=== PATIENT | male | born 2000 | race African-American/Black ===

== ENCOUNTER 2025-04-26 16:06 | Emergency (ER) | payer SELFPAY ==
[2025-04-26 16:21] VITALS: BP 151/124; PULSE 81; RESP 16; TEMP 36.9; O2SAT 100
--- NOTE | 2025-04-26 16:53 | ED_ITS ---
HPI - Male Genitourinary General Chief complaint: Urogenital-Male Stated complaint: std testing Time Seen by Provider: 04/26/25 16:40 Source: patient and RN notes reviewed Mode of arrival: ambulatory Limitations: no limitations History of Present Illness HPI Narrative: 24-year-old male presents Express Care complaining of exposure STD. Patient was notified he had unprotected sex with someone who has chlamydia. Patient reports that he has been having dysuria over the last 2-3 days. Patient denies any penile discharge, painful erections, painful ejaculation, painful intercourse, testicular pain or swelling. Patient denies any abdominal pain, nausea, vomiting, diarrhea, fevers, body aches, or any other symptoms. Patient would like to be tested for STDs. Related Data Allergies Allergy/AdvReac Type Severity Reaction Status Date / Time No Known Allergies Allergy Verified 04/26/25 16:09 Review of Systems Review of Systems: CONSTITUTIONAL: Denies fever, chills, body aches, or sweats. EYES: Denies visual changes, redness, or discharge. ENT: Denies rhinorrhea, congestion, sore throat, or otalgia. CARDIOVASCULAR: Denies chest pain, palpitations, or edema. RESPIRATORY: Denies cough or dyspnea. GASTROINTESTINAL: Denies abdominal pain, nausea, vomiting, or diarrhea. GENITOURINARY: Positive for dysuria. Negative for hematuria, penile discharge, painful erection, painful intercourse, testicular/scrotal pain/swelling. SKIN: Denies rash or itching. MUSCULOSKELETAL: Denies back pain, joint pain, or myalgia. NEUROLOGIC: Denies headache, numbness, or weakness. PSYCHIATRIC: Denies anxiety or depression. All other systems reviewed are negative, except as documented in HPI. PMFSH Comments At the time of my signature, I reviewed and agree with the nursing past medical, surgical, social, and family history. There is no relevant family history pertinent to the patient complaint. Exam Narrative: GENERAL: This is a well-nourished, well-developed adult, in no apparent distress. They are non ill-appearing, nontoxic appearing. HEAD: normocephalic, atraumatic. EYES: Sclera clear/white. Conjunctiva normal. Vision is grossly intact. Extraocular movements intact EARS: External ears normal, Hearing grossly intact. NOSE: External nose normal THROAT: Mucous membranes moist NECK: Neck supple, CARDIOVASCULAR: Regular rate and rhythm RESPIRATORY: My normal respiratory exam GENITOURINARY: Patient declined genital exam. SKIN: warm, Dry, intact with no suspicious lesions or rash, good texture and turgor. NEURO: awake, alert, and oriented to person, place and time. There were no obvious focal neurologic abnormalities. EXTREMITIES: No joint tenderness, effusion, or edema noted. Course Course Emergency Course: Portions of this record may have been created with voice recognition software Level of Care: Express Care Visit Vital Signs Vital signs: Vital Signs Temperature 98.4 F 04/26/25 16:21 Pulse Rate 81 04/26/25 16:21 Respiratory Rate 16 04/26/25 16:21 Blood Pressure 151/124 H 04/26/25 16:21 Pulse Oximetry 100 04/26/25 16:21 Oxygen Delivery Room Air 04/26/25 16:21 Temperature 98.4 F 04/26/25 16:21 Pulse Rate 81 04/26/25 16:21 Respiratory Rate 16 04/26/25 16:21 Blood Pressure 151/124 H 04/26/25 16:21 Pulse Oximetry 100 04/26/25 16:21 Oxygen Delivery Room Air 04/26/25 16:21 Reviewed MDM - Male Genitourinary MDM Narrative Medical decision making narrative: Urine dipstick shows trace leukocytes, bilirubin, glucose, and proteinurea. Urine culture pending. Given patient's dysuria will treat for urinary tract infection with cefuroxime. Chlamydia, gonorrhea, Trichomonas culture pending. Offered patient genital exam he declined. Patient elected to go ahead and be treated for chlamydia since he has a known exposure. Will treat empirically with doxycycline. [facility] if there are concerns for any other STDs we are unable to test for. Discussed physical exam findings. Advised supportive measures and signs/symptoms to go to the ER. Pt is appropriate for outpt treatment and f/u. Differential Diagnosis Differential diagnosis: Likely urinary tract infection, urethritis and other (STD) Lab Data Labs: Lab Results 04/26/25 Range/Units 17:02 POC Urine Color Yellow POC Urine Clarity Clear POC Urine pH 6.5 POC Ur Specif Mcgrath 1.030 POC Urine Protein 2+ (Negative) POC Ur Glucose (UA) 1+ (Negative) POC Urine Ketones Trace (Negative) POC Urine Blood Negative (Negative) POC Urine Nitrite Negative (Negative) POC Urine Bilirubin 1+ (Negative) POC Urine Urobilinogen 2.0 POC U Leukocyte Esteras Trace (Negative) Critical Care Time Critical Care Time Critical Care Time: No Discharge Plan Discharge Clinical Impression: STD exposure, Dysuria Urinary tract infection Qualifiers: Urinary tract infection type: site unspecified Hematuria presence: without hematuria Qualified Code(s): N39.0 - Urinary tract infection, site not specified Patient Disposition: Home Condition: Stable Instructions: Antibiotic Form, Chlamydia (ED), Sexually Transmitted Diseases (ED), Safe Sex Practices (ED), Urinary Tract Infection in Men (ED) Additional Instructions: Your urine dipstick shows evidence of a urinary tract infection. Take the cefuroxime as prescribed. The urine will be sent of for a culture to identify what type of bacteria is causing your infection. If the culture shows that the antibiotic will not get rid of your infection, you will be notified and a new antibiotic will be called in for you. You will also be notified for chlamydia, gonorrhea, Trichomonas results in You may need further treatment if gonorrhea Trichomonas are positive. You have Elected to go ahead and start treatment for chlamydia today. Please take doxycycline as directed and please wear sunscreen for going to be outside while taking doxycycline. [facility]comprehensive STD testing. Follow-up with PCP in 3-5 days. Developing abdominal pain, bloody urine, fevers, body aches, nausea, vomiting, or any other concerns please go to the ER immediately. Patient Language: Liberian Prescriptions: New doxycycline monohydrate 100 mg capsule 100 mg PO BID 7 Days Qty: 14 0RF cefuroxime axetil 500 mg tablet 500 mg PO Q12H 7 Days Qty: 14 0RF Follow-up/Referrals: PHYSICIAN,COBBLER APPRENTICE [Primary Care Provider] - Time of Disposition: 16:58
[2025-04-26 17:09] LABS: EDUAAPPEAR Clear; EDUABILI 1+ (Negative); EDUABLOOD Negative (Negative); EDUACOLOR1 Yellow; EDUAGLUCOSE 1+ (Negative); EDUAKETONE Trace (Negative); EDUALEUKO Trace (Negative); EDUANITRATE Negative (Negative); EDUAPH 6.5; EDUAPROTEIN 2+ (Negative); EDUASPGRAVITY 1.030; EDUAUROBILI 2.0
[2025-04-26 20:03] LABS: Trichomonas Vag PCR NOT DETECTED (NOT DETECTE)
== END 2025-04-26 17:25 | disposition home or self-care (01) ==
DX: Z20.2 Contact with and (suspected) exposure to infections with a predominantly sexual mode of transmission (principal); N39.0 Urinary tract infection, site not specified
CPT/HCPCS: 81003; 87086; 87491; 87591; 87661; 99203; G0463